=== PATIENT | female | born 1950 | race Caucasian/White ===

== ENCOUNTER → 2023-06-26 09:50 | Outpatient (REF) | payer MEDICARE, SELFPAY | LOC: WDC 09:50 | PROVIDERS: ATTENDING PHYSICIAN Nurse Practitioner Family | DX: N63.0 Unspecified lump in unspecified breast (principal); N63.20 Unspecified lump in the left breast, unspecified quadrant; N63.22 Unspecified lump in the left breast, upper inner quadrant | CPT/HCPCS: 76642; 77062; 77066 ==

== ENCOUNTER 2023-07-03 06:41 | Inpatient (IN) | payer MEDICARE, SELFPAY ==
--- NOTE | 2023-05-31 10:35 | CM ---
Patient is scheduled for an elective L TKR on 07/03/23. Spoke with patient prior to surgery via telephone. Patient had a R TKR at in 2021. Reintroduced role of Orthopedic Navigator. Patient reports that she lives with her in a two level
home with 1 -1 steps to enter. There is half bath on entry analyst. Up 12 steps, landing and 4 more steps to full bathroom and bedrooms. She currently functions independently. She has a cane, commode, rolling walker and shower seat. She has had
services through [facility]. PCP is Dr. Treasure Newsome.
Discussed orthopedic program and post surgical plans. Reviewed anticipated length of stay and that goal is for her to return home at discharge. Also reviewed outpatient PT. Patient prefers to start with home care. She will have support from her
when she goes home.
Patient will complete online education.
Plan: Orthopedic Navigator will remain available to assist with the care of patient and will reassess discharge needs after surgery.
[2023-06-16 12:34] VITALS: BMI 30.4
--- NOTE | 2023-06-16 12:59 | HPS.HSE ---
Family Physician
-
Family Physician: Treasuer Newsome
Chief Complaint
-
Advanced primary osteoarthritis of the left knee.
History of Present Illness
The patient is a 73-year-old female presenting today for advanced primary osteoarthritis of the left knee. The patient previously underwent an uncomplicated right total knee arthroplasty with Dr. Tadeo Us in March 2022. She
returns to [facility] today with complaints of significant left knee pain secondary to her osteoarthritis. She notes that her current left knee pain is greatly interfering with her activities of daily living and is overall impacting her
quality of life. She has tried and failed multiple conservative treatment measures in the past for her left knee pain. These conservative treatment measures include self therapeutic exercises, activity modification, corticosteroid injections,
medical management with Tylenol and NSAIDs as needed, and the application of ice and/or heat. Recent x-ray findings of the left knee demonstrated [id number] changes of the medial compartment with advanced patellofemoral osteoarthritis and
periarticular bone spurs. She was determined to be in need of a left total knee arthroplasty. She denies any current complaints today such as chest pain, shortness of breath, palpitations, nausea, vomiting, diarrhea, lightheadedness, dizziness,
cough, sore throat, or fever.
Medical History
Past Medical History
Past Medical History: Reports Other
Additional Past Medical History:
1. Osteoarthritis, status post right total knee arthroplasty, 03/2022, by Dr. Tadeo Us.
2. Hypertension.
3. Hypercholesterolemia.
4. PVCs, asymptomatic.
5. History of non-cardiac chest pain, likely GERD related.
6. Venous varicosities.
7. Chronic postnasal drip.
8. Hemorrhoids.
9. Pancreatic cysts.
10. Hepatic hemangioma.
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
12. Uterine polyps, status post excision.
13. Eczema.
14. Photosensitivity.
15. Prediabetes, A1c 6.3.
16. Obesity, BMI 30.4.
17. Remote history of tobacco abuse.
Past Surgical History: Reports Other
Additional Past Surgical History:
1. Right total knee arthroplasty, 03/2022, by Dr. Tadeo Us.
2. Dental implantation.
3. Bilateral cataract extraction.
4. Right retinal repair.
5. Uterine polyp excision.
Social History
Tobacco: Former Smoker (She is a former half pack per day cigarette smoker who quit tobacco products altogether in 1982.)
Alcohol: Other (She reports, at most, drinking two to three alcoholic beverages weekly.)
Personal:
Living: Other (She lives with her in a 2 story home. )
Family History
Family History: Not pertinent
Allergies / Home Medications
Allergy/Medication List:
MEDICATIONS:
1. Acetaminophen 1000 mg p.o. every 6 hours as needed.
2. Biotin 5000 mcg p.o. daily.
3. Losartan-hydrochlorothiazide 100-25 mg p.o. daily.
4. Clobestasol 0.05% cream, 1 application topical daily as needed.
�
ALLERGIES:� Ampicillin.
Review of Systems
-
A 12 point ROS was completed and negative except as noted: Yes
Physical Exam
Vital Signs
Blood pressure 148/85. Heart rate 78. Respirations 18. Pulse ox 97% on room air.
Height 5 feet, 5.75 inches. Weight 84.9 kg. BMI 30.4.
Physical Exam
General: Well Developed, Well Nourished and No Apparent Distress
HEENT: NormoCephalic, Moist mucous membranes, Atraumatic and PERRLA
Respiratory: Clear
Cardiac: Regular Rhythm
GI: Soft, Non Tender and Non Distended
Musculoskeletal: Other (Left knee: range of motion 10-120. Positive medial joint line tenderness. No lateral joint line tenderness. Negative patellar grind. No effusion. Mild instability to valgus stress. Palpable Potts's cyst. )
Skin: Warm and Dry
Neuro: AO x 3 and Nonfocal/grossly intact
Laboratory Results
-
DIAGNOSTIC STUDIES as of 06/16/2023: White blood cell count 6.9. Hemoglobin 13.3. Platelet count 256,000. Sodium 138. Potassium 4.3. BUN 22. Creatinine 0.8. Glucose 88. Hemoglobin A1c 6.3. Calcium 10.2. AST 32. ALT 25. Albumin 4.8. MRSA screen
negative.
EKG 06/16/2023: Normal sinus rhythm. Nonspecific ST and T-wave abnormality. There is no significant change from the prior EKG of 03/22/2022. The patient is asymptomatic, able to preform >4 METS.
Stress echocardiogram 11/21/2017: Normal treadmill stress echocardiogram at 5.5 METS. Moderate risk stress test.
Impression/Plan
-
CLEARANCES:
1. Primary medical, ROXANE Johnson, cleared.
� � Primary medical phone number: [phone].
2. Dental waived.
�
IMPRESSION/PLAN:
1. Advanced primary osteoarthritis of the left knee in need of a left total knee arthroplasty by Dr. Tadeo Us on 07/03/2023. The benefits and risks of the procedure have been explained to the patient. The patient understands these risks and
wishes to proceed.
2. Deep vein thrombosis prophylaxis: Aspirin with bilateral venous compression devices.
Patient's preferred phone number: [phone].
Patient's contact (Mateus Garvey - Spouse): [phone].
[2023-06-16 13:54] LABS: Hematocrit 39.6 % (37.0-47.0); Hemoglobin 13.3 g/dL (12.0-16.0); Mean Corp Hgb Conc. 33.6 g/dL (33.0-37.0); Mean Corpuscular Hgb 30.2 pg (27.0-31.0); Mean Platelet Volume 11.7 fL (7.4-10.4); Platelet Count 256 10^3/uL (130-400); Red Cell Dist. Width 12.7 % (11.5-14.5); White Blood Cell Count 6.9 10^3/uL (4.8-10.8)
[2023-06-16 14:08] LABS: ALT (SGPT) 25 U/L (0-35); AST (SGOT) 32 U/L (14-36); Albumin 4.8 g/dl (3.5-5.0); Alkaline Phosphatase 59 U/L (38-126); Blood Urea Nitrogen 22 mg/dl (7-17); Calcium 10.2 mg/dl (8.4-10.2); Carbon Dioxide 30 mmol/L (22-30); Chloride 102 mmol/L (98-107); Estimated Creatinine Clearance 69 ml/min; Glucose 88 mg/dl (70-99); Potassium 4.3 mmol/L (3.5-5.1); Sodium 138 mmol/L (135-145); Total Bilirubin 0.8 mg/dl (0.2-1.3); Total Protein 7.9 g/dl (6.3-8.2); eGFR > 60.00
[2023-06-16 14:28] LABS: Glycohemoglobin (HgbA1c) 6.3 % (4.0-5.6)
[2023-06-16 14:54] VITALS: BMI 30.4
[2023-07-03] VITALS (9 sets, daily range): BP systolic 70–146; BP diastolic 41–81; PULSE 58–84; O2SAT 97; BMI 30.4
[2023-07-03] MEDS: TYLENOL 650 MG PO ×4 (07:58→23:53)
[2023-07-03] MEDS: CELEBREX 200 MG PO (07:58)
[2023-07-03] MEDS: NORMOSOL-R 1000 IV (07:59)
[2023-07-03] MEDS: ROXICODONE 5 MG PO (12:38)
--- NOTE | 2023-07-03 13:10 | PTCARENOTE ---
Pt arrived to [facility] [address] from PACU s/p L TKR. Pt L knee aquacel C/D/I, NV intact, IVF infusing. Pt states no pain at this time. Pt oriented to call evans and room, bed locked and in lowest position, call evans within reach.
--- NOTE | 2023-07-03 13:35 | W.PN.ORTHO ---
Today's Communication / Plan
-
D/c when clinically stable.
Assessment
.
Distal Motor Intact: Yes
Dressing:
Clean, dry and intact.
Assessment:
L knee OA s/p L TKA w/ Dr Us 07/03/23
- s/p R TKA, 03/2022, by Dr Us
DVT prophylaxis - ASA, b/l venous foot pumps
Asymptomatic bradycardia in PACU - HR already improved to mid 70s upon my assessment
- EKG ordered
- Will monitor on tele overnight
HTN - + parameters - monitor BP
PVCs, asymptomatic - monitor on tele
History of non-cardiac chest pain, likely GERD related - start Pepcid HS
Hypercholesterolemia
Venous varicosities
Chronic postnasal drip
Pancreatic cysts
Hepatic hemangioma
Osteoma of right ear, stable on serial imaging
Uterine polyps, status post excision
Eczema
Prediabetes, A1c 6.3
Obesity, BMI 30.4
Remote history of tobacco abuse
Plan
.
Surgery / Date: L TKA w/ Dr Us 07/03/23
DVT Prophylaxis: Aspirin
Activity:
Out of bed.
PT/OT
Discharge Plan: Home w/ VN
Subjective
.
.:
Patient resting comfortably in bed.
Asymptomatic bradycardia post-op.
L knee pain currently well controlled.
Denies any new significant complaints.
Vital Signs and Labs
.
Vital Signs and Labs:
Lab Results
06/16/23 12:18
06/16/23 12:18
Temp Pulse Resp BP Pulse Ox
98.5 F 80 18 130/74 99
07/03/23 07:50 07/03/23 07:50 07/03/23 07:50 07/03/23 07:50 07/03/23 07:50
Physical Exam
-
HEENT: No pallor, cyanosis, or jaundice. Throat clear.
NECK: Supple. No JVD.
RESPIRATORY: Lungs clear to auscultation.
CVS: S1, S2 normal. RRR.�
ABDOMEN: Soft, non-tender. No distension. Obese.
EXTREMITIES: Strength equal, no calf pain with palpation/dorsiflexion. Calves soft.
FRONT END APPLICATION DEVELOPER: AOx3. No focal deficits. material handler grossly intact
[2023-07-03] MEDS: ZOFRAN 4 MG IV (14:27)
[2023-07-03] MEDS: ProAmatine 5 MG PO ×2 (15:11→18:07)
--- NOTE | 2023-07-03 17:07 | PTCARENOTE ---
1707: EKG obtained per order.
[2023-07-03] MEDS: ANCEF 5 IV (18:01)
[2023-07-03] MEDS: ASPIRIN 325 MG PO (18:01)
[2023-07-03] MEDS: SENOKOT 17.1999999999999993 MG PO (20:11)
[2023-07-03] MEDS: DECADRON 4 MG PO (20:11)
[2023-07-03] MEDS: COLACE 100 MG PO (20:11)
[2023-07-03] MEDS: BACTROBAN 2% OINTMENT 1 APPLIC NASAL (20:11)
[2023-07-03] MEDS: PEPCID 20 MG PO (22:16)
[2023-07-04] MEDS: ANCEF 5 IV (01:07)
[2023-07-04] MEDS: TYLENOL PO (02:43)
[2023-07-04 03:05] VITALS: BP 115/57
[2023-07-04] MEDS: TYLENOL 650 MG PO ×3 (03:27→12:42)
[2023-07-04 07:05] VITALS: BP 130/77; BP 143/59; BP 143/69; PULSE 57; PULSE 62; PULSE 85
[2023-07-04] MEDS: ASPIRIN 325 MG PO (08:34)
[2023-07-04] MEDS: CELEBREX 200 MG PO (08:35)
[2023-07-04] MEDS: BACTROBAN 2% OINTMENT 1 APPLIC NASAL (08:35)
[2023-07-04] MEDS: COLACE 100 MG PO (08:36)
[2023-07-04] MEDS: DECADRON 4 MG PO (08:36)
[2023-07-04] MEDS: ProAmatine PO (08:36)
[2023-07-04] MEDS: SENOKOT 17.1999999999999993 MG PO (08:37)
--- NOTE | 2023-07-04 08:46 | CM ---
Addendum entered by Bertha Lozada 07/04/23 12:22:
Patient did well in therapy. She has no concerns about going home and has updated her .
Original Note:
Reviewed chart and held rounds with PT, OT and nursing. Patient admitted as planned for elective L TKR. Met with patient at bedside. Confirmed information previously obtained for assessment. Also discussed discharge plans. The plan is for patient to
return home at discharge. She will have support from her when she goes home. Reviewed VN services including start of care (tentatively 07/04), services to be ordered (PT, SN) and frequency/duration of services. Options list provided and PAC
data reviewed. Patient selects VN.
Patient has all needed DME at home.
VN referral was completed and sent to [facility] through [employer] with request for start of care on 07/04. Confirmation received of their ability to accept case. mail clerk bills to fax discharge instructions to VN when complete.
[facility].
--- NOTE | 2023-07-04 10:25 | W.PN.ORTHO ---
Today's Communication / Plan
-
Await PT and OT recs.
D/c later today if remaining clinically stable.
Assessment
.
Distal Motor Intact: Yes
Dressing:
Clean, dry and intact.
Assessment:
L knee OA s/p L TKA w/ Dr Us 07/03/23
- s/p R TKA, 03/2022, by Dr Us
DVT prophylaxis - ASA, b/l venous foot pumps
Symptomatic orthostasis w/ PT POD 0 - orthostatic VS improving w/ IVF, Midodrine prn
- Oral hydration encouraged
Asymptomatic bradycardia in PACU - HR improved to mid 70s upon my assessment
- EKG at baseline
- Maintaining NSR w/ stable HRs on tele post-op
HTN - + parameters - BPs now stable w/ measures above
PVCs, asymptomatic - rhythm stable on tele
History of non-cardiac chest pain, likely GERD related - continue Pepcid HS
Hypercholesterolemia
Venous varicosities
Chronic postnasal drip
Pancreatic cysts
Hepatic hemangioma
Osteoma of right ear, stable on serial imaging
Uterine polyps, status post excision
Eczema
Prediabetes, A1c 6.3
Obesity, BMI 30.4
Remote history of tobacco abuse
Plan
.
Surgery / Date: L TKA w/ Dr Us 07/03/23
DVT Prophylaxis: Aspirin
Activity:
Out of bed.
PT/OT
Discharge Plan: Home w/ VN
Subjective
.
.:
Patient resting comfortably in bed this AM.
Symptomatic orthostasis w/ PT yesterday, improving w/ IVF and Midodrine.
L knee pain tolerable w/ minimal pain meds needed.
Eager for potential d/c today.
Vital Signs and Labs
.
Vital Signs and Labs:
Lab Results
06/16/23 12:18
02/16/24 12:18
Temp Pulse Resp BP Pulse Ox
98.3 F 85 17 130/77 96
07/04/23 07:05 07/04/23 08:36 07/04/23 07:05 07/04/23 08:36 07/04/23 07:05
Non-invasive Hgb result: 11.3
Physical Exam
-
HEENT: No pallor, cyanosis, or jaundice. Throat clear.
NECK: Supple. No JVD.
RESPIRATORY: Lungs clear to auscultation.
CVS: S1, S2 normal. RRR.�
ABDOMEN: Soft, non-tender. No distension. Obese.
EXTREMITIES: Post-surgical L knee edema. Strength equal, no calf pain with palpation/dorsiflexion. Calves soft.
MEDICAL TRANSCRIPTION SUPERVISOR: AOx3. No focal deficits. pipe stress engineer grossly intact
[2023-07-04 11:05] VITALS: BP 123/64; PULSE 74; O2SAT 97
--- NOTE | 2023-07-04 12:24 | W.DS.TRANS ---
DC Summary - Elementary Instructional Coach
-
Discharge Instructions:
Sleep Apnea Risk Low
Discharge Diagnosis/Procedures L knee OA s/p L TKA w/ Dr Us 07/03/23
Diet Regular
Activity As tolerated,With Walker
Driving Restrictions Not until seen by your Dr
Bathing Restrictions OK to Shower
Other Services VN,PT
Wound Care Dressing to be removed 1 week post-surgery.
Sunburst to be removed at 2 week follow-up
appointment with surgeon's office.
Instructions:
Stand-Alone Forms: Total Hip/Knee Replacement D/C
Changes to Home Medications: Yes
Discharge Medications:
DC Medications w/original date entered in [employer]
biotin 5,000 mcg disintegrating tablet 5,000 mcg PO DAILY Supplement 03/17/22
clobetasol 0.05 % topical cream 1 applic topical DAILYPRN PRN eczema 06/16/23
mupirocin 2 % topical ointment 1 applic intranasal BID #1 tube 06/16/23
acetaminophen 500 mg tablet 1,000 mg PO Q6H #60 tabs 07/04/23
aspirin 325 mg tablet 325 mg PO DAILY #30 tabs 07/04/23
celecoxib 200 mg capsule 200 mg PO DAILY #30 caps 07/04/23
dexamethasone 4 mg tablet 4 mg PO BID #5 tabs 07/04/23
docusate sodium 100 mg capsule 100 mg PO BID #30 caps 07/04/23
famotidine 20 mg tablet 20 mg PO HS #30 tabs 07/04/23
losartan 100 mg-hydrochlorothiazide 25 mg tablet 1 tab PO DAILY Blood pressure #1 tab 07/04/23
ondansetron HCl 4 mg tablet 4 mg PO Q6H PRN nausea and vomiting #30 tabs 07/04/23
oxycodone 5 mg tablet 5 - 10 mg PO Q6H PRN moderate-severe pain #30 tabs 07/04/23
sennosides 8.6 mg tablet (Senna Lax) 17.2 mg PO BID #30 tabs 07/04/23
Home Medication Changes
acetaminophen 500 mg tablet 1,000 mg PO Q6H #60 tabs 07/04/23
aspirin 325 mg tablet 325 mg PO DAILY #30 tabs 07/04/23
celecoxib 200 mg capsule 200 mg PO DAILY #30 caps 07/04/23
dexamethasone 4 mg tablet 4 mg PO BID #5 tabs 07/04/23
docusate sodium 100 mg capsule 100 mg PO BID #30 caps 07/04/23
famotidine 20 mg tablet 20 mg PO HS #30 tabs 07/04/23
losartan 100 mg-hydrochlorothiazide 25 mg tablet 1 tab PO DAILY Blood pressure #1 tab 07/04/23
ondansetron HCl 4 mg tablet 4 mg PO Q6H PRN nausea and vomiting #30 tabs 07/04/23
oxycodone 5 mg tablet 5 - 10 mg PO Q6H PRN moderate-severe pain #30 tabs 07/04/23
sennosides 8.6 mg tablet (Senna Lax) 17.2 mg PO BID #30 tabs 07/04/23
Pending Results: No
[2023-07-04 12:55] VITALS: BP 123/64; PULSE 78; O2SAT 96
== END 2023-07-04 14:29 | disposition home health service (06) | DRG 470 ==
LOC: 2 SOUTH 06:41
PROVIDERS: ADMITTING PHYSICIAN Specialist; FAMILY PHYSICIAN Internal Medicine
PROC: 0SRD0J9 Replacement of Left Knee Joint with Synthetic Substitute, Cemented, Open Approach (ICD-10-PCS; 2023-07-03)
DX: M17.12 Unilateral primary osteoarthritis, left knee (principal); I10 Essential (primary) hypertension; E78.00 Pure hypercholesterolemia, unspecified; K21.9 Gastro-esophageal reflux disease without esophagitis; E66.9 Obesity, unspecified; I49.3 Ventricular premature depolarization; Z68.30 Body mass index [BMI] 30.0-30.9, adult; Z87.891 Personal history of nicotine dependence
CPT/HCPCS: 36415; 73560; 80053; 83036; 85027; 87070; 93005; 97110; 97116; 97163; 97166; 97530; 97535; C1713; C1776

== ENCOUNTER 2023-08-28 10:54 | Outpatient (RCR) | payer MEDICARE, SELFPAY | END 2023-08-28 23:59 | disposition home or self-care (01) | LOC: RPT 10:54 | PROVIDERS: ATTENDING PHYSICIAN Physician Assistant Surgical; FAMILY PHYSICIAN Internal Medicine | DX: Z47.1 Aftercare following joint replacement surgery (principal); Z73.6 Limitation of activities due to disability; R26.89 Other abnormalities of gait and mobility; Z96.652 Presence of left artificial knee joint | CPT/HCPCS: 97010; 97110; 97162 ==

== ENCOUNTER 2023-09-20 14:43 | Outpatient (RCR) | payer MEDICARE, SELFPAY | END 2023-09-26 08:21 | disposition home or self-care (01) | LOC: RPT 14:43 | PROVIDERS: ATTENDING PHYSICIAN Physician Assistant Surgical; FAMILY PHYSICIAN Internal Medicine | DX: Z47.1 Aftercare following joint replacement surgery (principal); Z96.652 Presence of left artificial knee joint; R26.89 Other abnormalities of gait and mobility; Z73.6 Limitation of activities due to disability | CPT/HCPCS: 97010; 97110 ==